=== PATIENT | female | born 1980 | race Caucasian/White ===

== ENCOUNTER 2022-05-01 14:09 | Outpatient (CLI) | payer MEDICAID, SELFPAY | END 2022-05-01 14:10 | disposition home or self-care (01) | LOC: LONREF 05-08 09:55 | PROVIDERS: PCP Physician Assistant Medical; Visit Provider Physician Assistant Medical | DX: K80.20 Calculus of gallbladder without cholecystitis without obstruction (principal); R79.89 Other specified abnormal findings of blood chemistry | CPT/HCPCS: 87086 ==

== ENCOUNTER 2022-10-19 13:09 | Outpatient (CLI) | payer MEDICAID, SELFPAY ==
[2022-10-19 23:49] LABS: Chlamydia DNA Amplified* NOT DETECTED (No Detected); GC DNA Amplified* NOT DETECTED (No Detected)
== END 2022-10-19 13:10 | disposition home or self-care (01) ==
PROVIDERS: PCP Physician Assistant Medical; Visit Provider Physician Assistant Medical
DX: Z00.00 Encounter for general adult medical examination without abnormal findings (principal); Z13.6 Encounter for screening for cardiovascular disorders; Z13.29 Encounter for screening for other suspected endocrine disorder; Z11.3 Encounter for screening for infections with a predominantly sexual mode of transmission; Z11.59 Encounter for screening for other viral diseases
CPT/HCPCS: 0353U; 80061; 84443; 86703; 86803; 87491; 87591

== ENCOUNTER 2023-01-01 11:32 | Outpatient (CLI) | payer MEDICAID, SELFPAY ==
--- NOTE | 2023-01-01 11:30 | CRLHL7_ITS ---
For Patients: As a result of the Cures Act, medical imaging exams and procedure reports are released immediately into your electronic medical record. You may view this report before your referring provider. If you have questions, please contact your health care provider. BILATERAL SCREENING MAMMOGRAM WITH COMPUTER-AIDED DETECTION AND TOMOSYNTHESIS TECHNIQUE: CC and MLO views were obtained. These mammographic images have been obtained using full-field digital technique. These mammographic images were interpreted with the benefit of computer-aided detection. Breast Tomosynthesis was used in this interpretation. COMPARISON FILM: 01/08/22, 12/19/21. FINDINGS: There are scattered areas of fibroglandular density IMPRESSION: There is no radiographic evidence for malignancy. ASSESSMENT: BI-RADS Category 2: Benign RECOMMENDATION: Routine screening mammogram in 1 year. A lay language report of this examination will be provided to the patient. Jeevan Dover M.D. Diagnostic/Nuclear Medicine Radiologist [email or web address] [place]/Dictated by: Jeevan Dover MD @ 01/04/2023 8:28:00 AM (Electronically Signed)
== END 2023-01-01 11:33 | disposition home or self-care (01) ==
LOC: MAMMO 11:33
PROVIDERS: PCP Physician Assistant Medical; Visit Provider Physician Assistant Medical
DX: Z12.31 Encounter for screening mammogram for malignant neoplasm of breast (principal)
CPT/HCPCS: 77063; 77067

== ENCOUNTER 2023-03-19 09:00 | Outpatient (CLI) | payer MEDICAID, SELFPAY ==
--- NOTE | 2023-03-19 09:15 | MR_ITS ---
[address] [address] Phone:?[phone] Fax:?[phone] Referring Physician Information: Dick Plascencia [address] [facility] [address] Phone:?[phone] Fax:?[phone] Patient:Svetlana Irizarry D.O.B:?1980 Sex:?Female Phone:?[phone] [facility] MRN:?[id number] Exam Date:?03/19/2023 EXAM: MRI of the LEFT KNEE, without contrast CLINICAL INFORMATION: Female, 42 years old, with left knee pain. INDICATION: Evaluate for MCL injury. PRIOR SURGERY: None reported. PLAIN FILMS: Knee radiographs dated 12/29/2022. COMPARISONS: No prior MRIs available. TECHNICAL INFORMATION: Using a 1.5T MR scanner and a localizing surface coil: sagittals: PD, PDFS coronals: PD, T2FS axials: PD, PDFS SEDATION: None CONTRAST: None FINDINGS: Knee joint: Effusion: Physiologic left knee effusion. Popliteal cyst: None. Loose bodies: None. Subcutaneous and extra-articular soft tissues: Unremarkable. Ligaments: ACL: Intact ACL anteromedial and posterolateral bundles, without sprain or tear. PCL: Intact PCL, without acute or chronic injury. MCL: Abnormal intrasubstance signal, irregularity, and low-grade partial- thickness tearing is present along the anterior border of the superficial MCL, proximally (axial PDFS series 4 images 14-22). LCL: Intact LCL, without injury. Posterolateral corner: No posterolateral corner soft tissue injury. Popliteus, biceps femoris, iliotibial band, popliteofibular ligament and lateral gastrocnemius are intact. Posteromedial corner: No posteromedial corner soft tissue injury. Semimembranosus, pes anserine tendons and posterior oblique ligament are without injury, tendinopathy or bursitis. Extensor mechanism: Patellar tendon: Intact, without tendinopathy. Quadriceps tendon: Intact, without tendinopathy. Retinacula: Medial and lateral retinacula are intact. Fat pads: Mild edema is present in the superolateral aspect of Hoffa's fat pad (axial T2FS series 4 image 15 and sagittal PDFS series 6 image 22). Medial compartment: Medial meniscus: No articular surface, meniscosynovial junction or root tear. No displacement, extrusion or parameniscal cyst. Medial femoral condyle & tibial plateau: Broad-based mild grade II chondromalacia throughout the central, weightbearing aspect of the medial, without reactive osseous changes. Compartment Lateral compartment: Lateral meniscus: No articular surface, meniscosynovial junction or root tear. No displacement, extrusion or parameniscal cyst. Lateral femoral condyle: No chondromalacia or osteochondral abnormality. Lateral tibial plateau: No chondromalacia or osteochondral abnormality. Patellofemoral joint: Patella: Broad-based grade II chondromalacia of the medial facet and median ridge of the patella, with minimal marginal osteophytosis. Trochlea: Broad-based mild grade II chondromalacia of the medial facet and central sulcus of the trochlea, with minimal marginal osteophytosis. Proximal tibiofibular joint: Unremarkable, without evidence of ligament sprain injury, joint effusion or adjacent marrow edema. Bones: No stress/occult fractures or other marrow edema/pathology. IMPRESSION: 1. Mild grade 2 sprain of the superficial MCL with low-grade partial-thickness tearing along the anterior border, proximally. 2. Minimal osteoarthritis of the patellofemoral compartment, medially. 3. Mild chondromalacia of the medial compartment. 4. Mild findings in keeping with patellar tendon lateral femoral condyle friction syndrome. 5. No ACL, PCL, or LCL sprain/tear. 6. No medial or lateral meniscal tear. 7. No osteochondral abnormality of the lateral compartment. BC Electronically signed on 03/23/2023 7:55:00 AM by Franky Ventura M.D.
== END 2023-03-19 09:01 | disposition home or self-care (01) ==
LOC: MRI 09:00
PROVIDERS: PCP Physician Assistant Medical; Visit Provider Physician Assistant Medical
DX: M25.562 Pain in left knee (principal); S83.412A Sprain of medial collateral ligament of left knee, initial encounter; M17.12 Unilateral primary osteoarthritis, left knee; M94.262 Chondromalacia, left knee
CPT/HCPCS: 73721

== ENCOUNTER 2023-06-16 14:22 | Outpatient (CLI) | payer MEDICAID, SELFPAY | END 2023-06-16 14:23 | disposition home or self-care (01) | LOC: LKVREF 14:23 | PROVIDERS: PCP Physician Assistant Medical; Visit Provider Physician Assistant Medical | DX: E66.09 Other obesity due to excess calories (principal) | CPT/HCPCS: 82607 ==

== ENCOUNTER 2024-11-03 14:45 | Outpatient (CLI) | payer OTHER, SELFPAY ==
--- NOTE | 2024-11-03 15:00 | CRLHL7_ITS ---
For Patients: As a result of the Century Cures Act, medical imaging exams and procedure reports are released immediately into your electronic medical record. You may view this report before your referring provider. If you have questions, please contact your health care provider. INDICATION: BILATERAL SCREENING MAMMOGRAM, ASYMPTOMATIC 44 Y/O FEMALE COMPARISON: 01/01/23, 12/19/21 TECHNIQUE: CC and MLO views were obtained. These mammographic images have been obtained using full-field digital technique. These mammographic images were interpreted with the benefit of computer aided detection and tomosynthesis. BREAST COMPOSITION: There are scattered areas of fibroglandular density. FINDINGS: No suspicious findings. ASSESSMENT: BI-RADS 2 Benign RECOMMENDATION: Annual screening mammogram. A lay language report of this examination will be provided to the patient. Dictated by: Zane Oh MD @ 11/07/2024 12:04:46 (Electronically Signed)
== END 2024-11-03 14:46 | disposition home or self-care (01) ==
LOC: MAMMO 14:45
PROVIDERS: PCP Physician Assistant Medical; Visit Provider Physician Assistant Medical
DX: Z12.31 Encounter for screening mammogram for malignant neoplasm of breast (principal)
CPT/HCPCS: 77063; 77067

== ENCOUNTER 2025-05-10 08:35 | Outpatient (CLI) | payer OTHER, SELFPAY | END 2025-05-10 08:36 | disposition home or self-care (01) | PROVIDERS: PCP Physician Assistant Medical; Visit Provider Physician Assistant Medical | DX: M25.50 Pain in unspecified joint (principal); Z00.00 Encounter for general adult medical examination without abnormal findings | CPT/HCPCS: 80061; 82306; 84443; 86140 ==

== ENCOUNTER 2025-05-18 15:36 | Outpatient (CLI) | payer OTHER, SELFPAY ==
--- NOTE | 2025-05-18 16:00 | CRLHL7_ITS ---
For Patients: As a result of the Century Cures Act, medical imaging exams and procedure reports are released immediately into your electronic medical record. You may view this report before your referring provider. If you have questions, please contact your health care provider. INDICATION: Pain and swelling TECHNIQUE: Ultrasound venous duplex lower left extremity. Compression venous exam was performed using gudino-scale, color Doppler, and spectral Doppler analysis. COMPARISON: None FINDINGS: Sonographic imaging demonstrates the left common femoral, deep femoral, superficial femoral, popliteal, posterior tibial and greater saphenous and the contralateral right common femoral veins to be fully compressible with normal color Doppler blood flow. IMPRESSION: No convincing radiographic evidence of deep vein thrombosis within the visualized left lower extremity. Dictated by Tam Enciso MD @ 05/18/2025 8:42:45 PM (Electronically Signed)
== END 2025-05-18 15:37 | disposition home or self-care (01) ==
PROVIDERS: PCP Physician Assistant Medical; Visit Provider Physician Assistant Medical
DX: M79.605 Pain in left leg (principal)
CPT/HCPCS: 93971

== ENCOUNTER 2025-06-05 08:35 | Outpatient (CLI) | payer OTHER, SELFPAY | END 2025-06-05 08:36 | disposition home or self-care (01) | LOC: NFLDREF 06-09 16:45 | PROVIDERS: PCP Physician Assistant Medical; Referring Provider Physician Assistant Medical; Visit Provider Physician Assistant Medical | DX: M25.50 Pain in unspecified joint (principal); R79.82 Elevated C-reactive protein (CRP) | CPT/HCPCS: 84550; 86038; 86200; 86431; 86618; 86812 ==